=== PATIENT | female | born 2000 | race Hispanic/Latino ===

== ENCOUNTER 2023-04-30 23:56 | Emergency (ER) | payer OTHER, SELFPAY ==
--- NOTE | ~2023-04-30 | XR_ITS ---
XR knee RT 3V DATE: 05/01/2023 03:51 INDICATION: Right knee pain TECHNIQUE: 3 views COMPARISON: None FINDINGS: No fracture or dislocation or joint effusion. No periosteal reaction or bone destruction. J oint spaces are well preserved. No radiopaque intra-articular loose body or chondrocalcinosis. IMPRESSION: Negative Reviewed, dictated and finalized at location A. IMPRESSION: Negative
[2023-05-01 00:05] VITALS: BP 117/63; PULSE 80; RESP 18; TEMP 36.2; O2SAT 100
[2023-05-01 02:32] VITALS: BP 119/72; PULSE 69; RESP 15; TEMP 37; O2SAT 100
--- NOTE | 2023-05-01 03:01 | ED.ABDPAIN ---
HPI - Abdominal Pain General Chief Complaint: Abdominal Pain Stated Complaint: Lower abd pain Time Seen by Provider: 05/01/23 02:37 History of Present Illness HPI narrative: 23-year-old female presented to the emergency department for evaluation of intermittent right lower quadrant pain and right knee pain. Patient states that over the last few days she has been having sharp intermittent right lower quadrant pain that lasts approximately a few seconds and resolves. Patient states that she was encouraged by her mother to seek evaluation. Patient states he is also having some intermittent right knee pain. Related Data Home Medications Medication Instructions Recorded Confirmed No Home Medications 05/01/23 05/01/23 Allergies Allergy/AdvReac Type Severity Reaction Status Date / Time No Known Allergies Allergy Verified 05/01/23 00:09 Review of Systems Review of Systems: All systems reviewed & are unremarkable except as noted in HPI and below Exam Narrative: APPEARANCE: Well appearing, no pain, no distress, well-nourished. HEAD: normocephalic, atraumatic. EYES: PERRLA/EOMI, conjunctivae clear. NECK: Supple. No adenopathy, no masses. RESPIRATORY: Airway patent, respirations nonlabored. Clear to auscultation bilaterally, no rales, rhonchi, wheezing. CARDIOVASCULAR: Regular rate and rhythm without murmurs rubs or gallops. ABDOMINAL: Soft, nontender, nondistended, normal bowel sounds MUSCULOSKELETAL: Moves all extremities. No knee effusion, mild right knee tenderness to palpation NEURO: Alert. Cranial nerves II through XII intact. Grossly intact SKIN: Warm, dry. Normal Color Course Course Emergency Course: 23-year-old female presented the emergency department for evaluation of right knee pain and right lower quadrant pain that is intermittent. Patient was afebrile with no leukocytosis. Patient hemoglobin is stable 11.8. Patient's CMP had no significant abnormalities. CT scan showed no acute abnormality and patient's x-ray of the knee showed no fracture or dislocation. Patient was updated on results of the work-up. All question concerns were addressed. Patient was well-appearing at the time of discharge. Vital Signs Vital signs: Vital Signs Temperature 97.1 F L 05/01/23 00:05 Pulse Rate 80 05/01/23 00:05 Respiratory Rate 18 05/01/23 00:05 Blood Pressure 117/63 05/01/23 00:05 Pulse Oximetry 100 05/01/23 00:05 Oxygen Delivery Room Air 05/01/23 00:05 Temperature 98.6 F 05/01/23 04:17 Pulse Rate 62 05/01/23 04:17 Respiratory Rate 15 05/01/23 04:17 Blood Pressure 120/73 05/01/23 04:17 Pulse Oximetry 100 05/01/23 04:17 Oxygen Delivery Room Air 05/01/23 00:05 MDM - Abdominal Pain Differential Diagnosis Differential diagnosis: Likely abdominal pain, acute appendicitis, calculus of kidney, constipation, diverticulitis, endometriosis and small bowel obstruction Lab Data Attestation: I reviewed the patient's lab results. 05/01/23 02:59 05/01/23 02:59 Labs: Lab Results 05/01/23 05/01/23 05/01/23 Range/Units 02:56 02:59 03:27 WBC 8.8 (4.5-10.0) K/mm3 RBC 4.37 (4.2-5.4) M/mm3 Hgb 11.8 L (12.0-15.0) g/dL Hct 37.2 (37.0-47.0) % MCV 85.1 (80-100) fl MCH 27.0 (26-34) pg MCHC 31.7 L (32-36) g/dl RDW 13.7 (11.5-14.5) % Plt Count 381 H (150-375) k/mm3 MPV 9.4 (7.4-10.4) fl Immature Gran % (Auto) 0.2 (0-0.5) % Neut % (Auto) 45.9 (45.5-73.1) % Lymph % (Auto) 44.3 H (18.3-44.2) % Traverse % (Auto) 7.7 (2.6-8.5) % Eos % (Auto) 0.9 (0-4.4) % Baso % (Auto) 1.0 (0.2-1.2) % Lymph # (Auto) 3.89 H (0.9-3.2) K/mm3 Traverse # (Auto) 0.7 H (0.1-0.6) K/mm3 Eos # (Auto) 0.1 (0-0.3) K/mm3 Baso # (Auto) 0.1 (0.0-0.1) K/mm3 Abs Immat Gran (auto) 0.02 (0.00-0.031) K/mm3 Absolute Neuts (auto) 4.0 (1.3-6.7) K/mm3 Absolute Nucleated RBC 0.0 (0.0-0.012)
[2023-05-01 03:07] LABS: Basophils Absolute Auto 0.1 K/mm3 (0.0-0.1); Eosinophils Absolute Auto 0.1 K/mm3 (0-0.3); Eosinophils Percent Auto 0.9 % (0-4.4); Hematocrit 37.2 % (37.0-47.0); Hemoglobin 11.8 g/dL (12.0-15.0); Immature Granulocyte Absolute 0.02 K/mm3 (0.00-0.031); Immature Granulocyte Percent A 0.2 % (0-0.5); Lymphocytes Absolute Auto 3.89 K/mm3 (0.9-3.2); Lymphocytes Percent Auto 44.3 % (18.3-44.2); Mean Corpuscular HGB Conc 31.7 g/dl (32-36); Mean Corpuscular Volume 85.1 fl (80-100); Mean Platelet Volume 9.4 fl (7.4-10.4); Monocytes Absolute Auto 0.7 K/mm3 (0.1-0.6); Monocytes Percent Auto 7.7 % (2.6-8.5); Neutrophils Percent Auto 45.9 % (45.5-73.1); Platelet Count Result 381 k/mm3 (150-375); Red Blood Count 4.37 M/mm3 (4.2-5.4); Red Cell Distribution Width 13.7 % (11.5-14.5); White Blood Count 8.8 K/mm3 (4.5-10.0)
[2023-05-01 03:17] LABS: Alanine Aminotransferase 22 U/L (6-35); Albumin Level 4.7 g/dL (3.5-5.1); Alkaline Phosphatase 95 U/L (38-126); Anion Gap 9 mmol/L (8-16); Aspartate Amino Transferase 32 U/L (14-36); Bilirubin,Total 0.4 mg/dL (0.2-1.3); Blood Urea Nitrogen 10 mg/dL (7-17); Calcium 9.5 mg/dL (8.4-10.2); Carbon Dioxide 29 mmol/L (22-30); Chloride 101 mmol/L (98-107); Estimated CRCL calculation 127 ml/min; Estimated Glomerular Filt Rate > 60; Glucose 86 mg/dL (65-110); Lactic Acid Reflex 0.8 mmol/L (0.7-2.0); Lipase 73 U/L (23-300); Potassium 3.7 mmol/L (3.4-5.0); Sodium 139 mmol/L (137-145)
[2023-05-01 03:21] LABS: Prothrombin Time 13.2 Seconds (11.1-14.7)
[2023-05-01 03:22] LABS: Partial Thromboplastin Time 36.1 SECONDS (22.3-36.8)
[2023-05-01 03:54] LABS: Appearance Urine Clear (Clear); Bilirubin Urine Negative (Negative); Blood Urine Negative (Negative); Color Urine Yellow (Yellow); Glucose Urine UA Negative (Negative); Ketones Urine Negative (Negative); Leukocyte Esterase Ur Negative LEU/UL (Negative); Nitrate Urine Negative (Negative); Protein Urine Negative (Negative); Specific Grav Ur 1.002 (1.001-1.035); Urobilinogen Urine 0.2 mg/dL (<2.0)
[2023-05-01 04:02] LABS: Add Urine Microscopic? NO
[2023-05-01 04:07] LABS: Beta HCG Quantitative < 2.39 mIU/ML
[2023-05-01 04:17] VITALS: BP 120/73; PULSE 62; RESP 15; TEMP 37; O2SAT 100
== END 2023-05-01 04:18 | disposition home or self-care (01) ==
PROVIDERS: Emergency Provider Emergency Medicine
DX: R10.31 Right lower quadrant pain (principal); M25.561 Pain in right knee
CPT/HCPCS: 36415; 73562; 80053; 81003; 83605; 83690; 84702; 85025; 85610; 85730; 99283